=== PATIENT | male | born 1975 | race African-American/Black ===

== ENCOUNTER 2020-08-06 09:14 | Emergency (ER) | payer BC ==
[~2020-08-06] VITALS: Ht 182.9 cm; Wt 125.2 kg
[2020-08-06] MEDS ORDERED: LOSARTAN POTAS100 MG PO (09:28)
[2020-08-06] MEDS ORDERED: LISINOPRIL10 MG PO (09:28)
== END 2020-08-06 09:50 | disposition home or self-care (01) ==
LOC: FSED 09:43
DX: R19.7 Diarrhea, unspecified (principal); K62.89 Other specified diseases of anus and rectum; I10 Essential (primary) hypertension; Z98.84 Bariatric surgery status
CPT/HCPCS: 99282